=== PATIENT | male | born 1945 | race Caucasian/White ===

== ENCOUNTER 2023-12-18 18:00 | Emergency (ER) | payer OTHER ==
[2023-12-18] MEDS ORDERED: FLUORESCEIN SODIUM 1 MG/WRAP ONE (20:33)
[2023-12-18] MEDS ORDERED: TETRACAINE HCL 0.5% 4ML OPTH ONE (20:34)
--- NOTE | 2023-12-18 20:50 | ER ---
Nurse's Notes [facility] Name: Vickey Newsome Age: 78 yrs Sex: Male : 1945 Arrival Date: 12/18/2023 Time: 18:00 Bed 9 Private MD: Diagnosis: Injury of conjunctiva and corneal abrasion without foreign body, left eye Presentation: 12/17 18:36 Chief complaint: Patient states: [place] something in his left eye pop and started having cm10 blood in his left iris. Pt states that this is the second time it has happened. Pt states that his vision in his left eye is beginning to get foggy. Coronavirus screen: Client denies travel out of the [place] in the last 14 days. Ebola Screen: Patient denies travel to an Ebola-affected area in the 21 days before illness onset. No symptoms or risks identified at this time. Initial Sepsis Screen: Does the patient meet any 2 criteria? No. Patient's initial sepsis screen is negative. Does the patient have a suspected source of infection? No. Patient's initial sepsis screen is negative. Risk Assessment: Do you want to hurt yourself or someone else? Patient reports no desire to harm self or others. Onset of symptoms was December 18, 2023. 18:36 Method Of Arrival: Ambulatory cm10 18:36 Acuity: TRACEY 3 cm10 Triage Assessment: 18:44 General: Appears in no apparent distress. comfortable, Behavior is calm, cooperative. cm10 Pain: Denies pain. Neuro: No deficits noted. Level of Consciousness is awake, alert, obeys commands, Oriented to person, place, time, situation, Appropriate for age. Respiratory: No deficits noted. Airway is patent Respiratory effort is even, unlabored, Respiratory pattern is regular, symmetrical. Historical: - Allergies: 18:38 Cipro; cm10 18:38 Bactrim; cm10 18:38 Wasps; cm10 18:38 Bees; cm10 18:38 Euthyrox; cm10 18:38 Furosemide; cm10 18:38 Sulfa (Sulfonamide Antibiotics); cm10 18:38 Torsemide; cm10 - Home Meds: 18:38 metoprolol tartrate 25 mg Oral tab 1 tab once daily [Active]; levothyroxine 150 mcg cm10 oral tablet 1 tab daily [Active]; aspirin 325 mg oral tablet [Active]; spironolactone 25 mg Oral tablet [Active]; amitriptyline 10 mg Oral tablet [Active]; tamsulosin 0.4 mg oral capsule [Active]; ferrous sulfate 325 mg (65 mg iron) Oral tablet, delayed release (enteric coated) [Active]; - PMHx: 18:38 Enlarged Heart; Cerebrovascular accident; Anemia; Peripheral neuropathy; Congestive cm10 heart failure; Cardiomyopathy; - PSHx: 18:38 Back; Left hip; cm10 - Immunization history:: Adult Immunizations up to date. - Infectious Disease History:: Denies. - Social history:: Smoking status: Patient denies any tobacco usage or history of. Screenin:56 [facility] ED Fall Risk Assessment (Adult) History of falling in the last 3 months, tl4 including since admission No falls in past 3 months (0 pts) Confusion or Disorientation No (0 pts) Intoxicated or Sedated No (0 pts) Impaired Gait No (0 pts) Mobility Assist Device Used No (0 pt) Altered Elimination No (0 pt) Score/Fall Risk Level 0 - 2 = Low Risk Oriented to surroundings, Maintained a safe environment, Educated pt \T\ family on fall prevention, incl call for assistance when getting out of bed, Assessed \T\ reinforced patient's understanding of fall precautions. Abuse screen: Denies threats or abuse. Denies injuries from another. Nutritional screening: No deficits noted. Tuberculosis screening: No symptoms or risk factors identified. Assessment: 20:54 General: Appears in no apparent distress. Behavior is calm, cooperative. Pain: Denies tl4 pain. Neuro: Level of Consciousness is awake, alert, obeys commands, Oriented to person, place, time, situation. Cardiovascular: Capillary refill < 3 seconds Patient's skin is warm and dry. Respiratory: Airway is patent Respiratory effort is even, unlabored, Respiratory pattern is regular, symmetrical. GI: No signs and/or symptoms were reported involving the gastrointestinal system. : No signs and/or symptoms were reported regarding the genitourinary system. EENT: Reports blurred vision in outer aspect of conjuctiva of left eye, iris of left eye and inner aspect of conjunctiva of left eye. Derm: No signs and/or symptoms reported regarding the dermatologic system. Musculoskeletal: No signs and/or symptoms reported regarding the musculoskeletal system. Vital Signs: 18:44 BP 118 / 59; Pulse 88; Resp 16; Temp 97.2(TE); Pulse Ox 95% on R/A; Weight 116.57 kg; cm10 Height 5 ft. 11 in. ; Pain 0/10; 20:56 BP 130 / 63; Pulse 75; Resp 18; Temp 98.9(O); Pulse Ox 99% ; tl4 18:44 Body Mass Index 35.84 (116.57 kg, 180.34 cm) cm10 18:44 Pain Scale: Adult cm10 Visual Acuity: 20:58 Left Eye Visual acuity 20/100, ; Right Eye Visual acuity 20/70, ; Both Eyes Visual tl4 acuity 20/50; With Lenses; ED Course: 18:03 Patient arrived in ED. im 18:19 Pedro Christianson FNP-C [facility]. dr5 18:19 Divine Ivey MD is Attending Physician. dr5 18:38 Triage completed. cm10 18:45 Arm band placed on right wrist. Patient placed in waiting room. cm10 20:29 Jb Arora, PATRICIA is Primary Nurse. tl4 20:57 Patient has correct armband on for positive identification. Bed in low position. Call tl4 light in reach. Side rails up X 1. Adult w/ patient. Provided Education on: ed process, call pereira. Door closed. Noise minimized. Lights dimmed. Moved to private room. 20:57 No provider procedures requiring assistance completed. Patient did not have IV access tl4 during this emergency room visit. Administered Medications: 20:53 Drug: Tetracaine Ophthalmic Drops 0.5 % 1 drops Ophthalmic once {Note: administered by tl4 MANUELA Roberts.} Route: Ophthalmic; Site: left eye; 21:01 Follow up: Response: No adverse reaction tl4 Medication: 20:56 VIS not applicable for this client. tl4 Outcome: 20:49 Discharge ordered by . dr5 20:58 Discharged to home ambulatory, with family, tl4 20:58 Condition: stable 20:58 Discharge instructions given to patient, family, Instructed on discharge instructions, follow up and referral plans. medication usage, Demonstrated understanding of instructions, follow-up care, medications, Prescriptions given X 1, 21:04 Patient left the ED. tl4 Signatures: Araceli Claire Clarissa, RN RN cm10 Jb Arora RN RN tl4 Pedro Christianson, SHEET FINISHER-C SHEET FINISHER-Cdr5 Corrections: (The following items were deleted from the chart) 18:44 18:38 PMHx: Atrial fibrillation; cm10 cm10
--- NOTE | 2023-12-18 20:50 | EDPHYS ---
Physician Documentation [facility] Name: Vickey Newsome Age: 78 yrs Sex: Male : 1945 Arrival Date: 12/18/2023 Time: 18:00 Bed 9 Private MD: ED Physician Divine Ivey HPI: 12/17 18:45 This 78 yrs old Male presents to ER via Ambulatory with complaints of Eye dr5 Problem - left. 18:45 Onset: The symptoms/episode began/occurred today. Duration: the symptoms are dr5 intermittent. Associated signs and symptoms: Pertinent negatives: chills, dizziness, trauma / falls. Patient is a 78-year-old male coming in with left eye haziness that is been intermittent today. Patient denies trauma. Patient denies floaters, flashers. Patient reports history of anemia, CVA, enlarged heart, congestive heart failure. Patient denies haziness at this time.. Historical: - Allergies: 18:38 Cipro; cm10 18:38 Bactrim; cm10 18:38 Wasps; cm10 18:38 Bees; cm10 18:38 Euthyrox; cm10 18:38 Furosemide; cm10 18:38 Sulfa (Sulfonamide Antibiotics); cm10 18:38 Torsemide; cm10 - Home Meds: 18:38 metoprolol tartrate 25 mg Oral tab 1 tab once daily [Active]; levothyroxine 150 mcg cm10 oral tablet 1 tab daily [Active]; aspirin 325 mg oral tablet [Active]; spironolactone 25 mg Oral tablet [Active]; amitriptyline 10 mg Oral tablet [Active]; tamsulosin 0.4 mg oral capsule [Active]; ferrous sulfate 325 mg (65 mg iron) Oral tablet, delayed release (enteric coated) [Active]; - PMHx: 18:38 Enlarged Heart; Cerebrovascular accident; Anemia; Peripheral neuropathy; Congestive cm10 heart failure; Cardiomyopathy; - PSHx: 18:38 Back; Left hip; cm10 - Immunization history:: Adult Immunizations up to date. - Infectious Disease History:: Denies. - Social history:: Smoking status: Patient denies any tobacco usage or history of. ROS: 20:59 Constitutional: as per hpi dr5 Exam: 20:59 Visual Acuity: I have reviewed the nursing documentation. dr5 20:59 Constitutional: This is a well developed, well nourished patient who is awake, alert, dr5 and in no acute distress. ENT: Nares patent. No nasal discharge, no septal abnormalities noted. Tympanic membranes are normal and external auditory canals are clear. Oropharynx with no redness, swelling, or masses, exudates, or evidence of obstruction, uvula midline. Mucous membranes moist. Neck: Trachea midline, no thyromegaly or masses palpated, and no cervical lymphadenopathy. Supple, full range of motion without nuchal rigidity, or vertebral point tenderness. No Meningismus. Respiratory: Lungs have equal breath sounds bilaterally, clear to auscultation. No rales, rhonchi or wheezes noted. No increased work of breathing, no retractions or nasal flaring. Back: No spinal tenderness. No costovertebral tenderness. Full range of motion. Skin: Warm, dry with normal turgor. Normal color with no rashes, no lesions, and no evidence of cellulitis. MS/ Extremity: Pulses equal, no cyanosis. Neurovascular intact. Full, normal range of motion. Neuro: Awake and alert, GCS 15, oriented to person, place, time, and situation. Cranial nerves II-XII grossly intact. Motor strength 5/5 in all extremities. Sensory grossly intact. Cerebellar exam normal. Normal gait. 20:59 Eyes: Periorbital structures: appear normal, Pupils: no acute changes, normal size, equal, round, and reactive to light and accomodation, Extraocular movements: intact throughout, Conjunctiva: normal, Corneas: are normal, Visual cadet: are intact, no acute changes, Nystagmus: is not appreciated, Examination of the other eye reveals no obvious gross abnormality, a slit lamp exam was employed for the exam, Corneal abrasion noted to 9 o'clock position lateral of iris. IOM intact.. Vital Signs: 18:44 BP 118 / 59; Pulse 88; Resp 16; Temp 97.2(TE); Pulse Ox 95% on R/A; Weight 116.57 kg; cm10 Height 5 ft. 11 in. ; Pain 0/10; 20:56 BP 130 / 63; Pulse 75; Resp 18; Temp 98.9(O); Pulse Ox 99% ; tl4 18:44 Body Mass Index 35.84 (116.57 kg, 180.34 cm) cm10 18:44 Pain Scale: Adult cm10 Visual Acuity: 20:58 Left Eye Visual acuity 20/100, ; Right Eye Visual acuity 20/70, ; Both Eyes Visual tl4 acuity 20/50; With Lenses; Procedures: 20:59 Eye Exam: Acuity test: Visual acuity noted. Left eye worse than right. dr5 MDM: 18:21 Medical Screening Exam initiated dr5 19:42 Awaiting: ER Bed for eye exam. Patient in [facility].. dr5 20:59 Differential diagnosis: Corneal abrasion of Corneal ulcer of Foreign body in. Data dr5 reviewed: vital signs, nurses notes. Care significantly affected by the following chronic conditions: Diabetes, Hypertension, Congestive Heart Failure. Care significantly affected by the following Social Determinants of Health: Poor access to healthcare and/or lack of insurance. Counseling: I had a detailed discussion with the patient and/or guardian regarding the historical points, exam findings, and any diagnostic results supporting the discharge/admit diagnosis, the presence of at least one elevated blood pressure reading (>120/80) during this emergency department visit, the need for outpatient follow up, for definitive care, an opthalmologist, to return to the emergency department if symptoms worsen or persist or if there are any questions or concerns that arise at home. ED course: Eye exam did not reveal any foreign bodies. Small corneal abrasion noted at 9 o'clock position. No other uptake. Negative Sergio sign. Will have patient follow-up with ophthalmology this week. All questions answered. Will give erythromycin ointment.. 12/17 18:44 Order name: Eye Tray; Complete Time: 20:54 dr5 12/17 18:44 Order name: Fluoresene Opth strip; Complete Time: 20:54 dr5 12/17 18:44 Order name: Visual Acuity; Complete Time: 20:54 dr5 Administered Medications: 20:53 Drug: Tetracaine Ophthalmic Drops 0.5 % 1 drops Ophthalmic once {Note: administered by tl4 FNP. Armando} Route: Ophthalmic; Site: left eye; 21:01 Follow up: Response: No adverse reaction tl4 Disposition Summary: 12/18/23 20:49 Discharge Ordered Notes: Location: Home dr5 Condition: Stable dr5 Diagnosis - Injury of conjunctiva and corneal abrasion without foreign body, left eye dr5 Followup: dr5 - With: Emergency Department - When: As needed - Reason: Worsening of condition Followup: dr5 - With: Private Physician - When: 1 - 2 days - Reason: Recheck today's complaints, Continuance of care, Re-evaluation by your physician Discharge Instructions: - Discharge Summary Sheet dr5 - Corneal Abrasion dr5 Forms: - Medication Reconciliation Form dr5 - Antibiotic Education dr5 - Patient Portal Instructions dr5 - Leadership Thank You Letter dr5 Prescriptions: - Erythromycin 5 mg/gram (0.5 %) Ophthalmic ointment - apply 1 centimeter OPHTHALMIC route 2-3 times daily for 7 days; 15 gram tube; dr5 Refills: 0, Product Selection Permitted Signatures: Kassi Ni, RN RN cm10 Jb Arora RN RN tl4 Pedro Christianson, FABRICATION MIG WELDER-C FABRICATION MIG WELDER-Cdr5 Corrections: (The following items were deleted from the chart) 18:44 18:38 PMHx: Atrial fibrillation; cm10 cm10
[2023-12-18 21:10] VITALS: BP 130/63; TEMP 98.9; O2SAT 99
== END 2023-12-18 21:04 | disposition home or self-care (01) ==
LOC: ER 18:00
DX: S05.02XA Injury of conjunctiva and corneal abrasion without foreign body, left eye, initial encounter (principal)
CPT/HCPCS: 99283